=== PATIENT | female | born 1945 | race Caucasian/White ===

== ENCOUNTER → 2018-11-17 08:06 | Outpatient (CLI) | payer MEDICARE, OTHER, SELFPAY ==
--- NOTE | 2018-11-17 | DI.MG.S_ITS ---
BILATERAL DIGITAL SCREENING MAMMOGRAM 3D/2D WITH CAD: 11/17/2018 CLINICAL: Routine screening. Comparison is made to exams dated: 06/16/2017 mammogram, 08/13/2014 mammogram, and 08/12/2013 mammogram - [facility]. The tissue of both breasts is extremely dense, which lowers the sensitivity of mammography. Current study was also evaluated with a Computer Aided Detection (CAD) system. There are benign calcifications in both breasts. No significant masses, calcifications, or other findings are seen in either breast. There has been no significant interval change. IMPRESSION: There is no mammographic evidence of malignancy. A 1 year screening mammogram is recommended. This exam was interpreted at Station ID: [id number]. NOTE: For mammograms, a report in lay terms will be sent to the patient. Approximately 15% of breast malignancies will not be visualized mammographically. In the management of a palpable breast mass, a negative mammogram must not discourage biopsy of a clinically suspicious lesion. Electronically Signed By: Bulmaro velez/juan c:11/19/2018 07:32:27 letter sent: Normal Exam ACR BI-RADS Category 2: Benign Finding(s) 3342F
== END ==
PROVIDERS: PCP Internal Medicine; Visit Provider Internal Medicine
DX: Z12.31 Encounter for screening mammogram for malignant neoplasm of breast (principal)
CPT/HCPCS: 77063; 77067

== ENCOUNTER → 2018-12-06 14:17 | Outpatient (CLI) | payer MEDICARE, OTHER, SELFPAY | PROVIDERS: PCP Internal Medicine; Visit Provider Internal Medicine | DX: M85.852 Other specified disorders of bone density and structure, left thigh (principal); Z78.0 Asymptomatic menopausal state; Z82.62 Family history of osteoporosis | CPT/HCPCS: 77080 ==

== ENCOUNTER → 2018-12-21 16:07 | Outpatient (CLI) | payer MEDICARE, OTHER, SELFPAY ==
--- NOTE | 2018-12-21 16:10 | DI.US.S_ITS ---
PROCEDURE: US SOFT TISSUE HEAD AND NECK INDICATIONS: SWOLLEN LYMPH NODE IN NECK X 6 MONTHS TECHNIQUE: Real-time scanning was performed of the neck region of interest, with image documentation. COMPARISON: None. FINDINGS: There is a 2.0 x 0.8 x 1.0 cm lymph node palpated along the left aspect of the anterior neck. This demonstrates a normal fatty hilum and thin cortex. IMPRESSION: Normal appearing left cervical lymph node which likely corresponds of palpated. Dictated by: Elba Arellano M.D. on 12/21/2018 at 16:54 Approved by: Elba Arellano M.D. on 12/21/2018 at 16:55
== END ==
PROVIDERS: PCP Nurse Practitioner; Visit Provider Nurse Practitioner
DX: R59.0 Localized enlarged lymph nodes (principal)
CPT/HCPCS: 76536

== ENCOUNTER → 2019-07-19 15:46 | Outpatient (CLI) | payer MEDICARE, OTHER, SELFPAY ==
[2019-07-19 16:37] LABS: Hemoglobin A1C% w Est Avg Glu 5.4 % (4.0-6.0)
[2019-07-19 17:30] LABS: TSH w/ Reflex to FT4 2.69 uIU/mL (0.47-4.68)
[2019-07-19 18:05] LABS: Folate 14.6 ng/mL (2.76-20.0); Vitamin B12 471 pg/mL (239-931)
[2019-07-23 20:45] LABS: Albumin 4.1 g/dL (3.8-4.8); Alpha 1 Globulin 0.3 g/dL (0.2-0.3); Alpha 2 Globulin 0.7 g/dL (0.5-0.9); Beta 1 Globulin 0.4 g/dL (0.4-0.6); Protein, Total 6.8 g/dL (6.1-8.1)
[2019-07-24 21:06] LABS: Methylmalonic Acid 252 nmol/L (87-318)
== END ==
PROVIDERS: PCP Nurse Practitioner; Visit Provider Psychiatry & Neurology Neurology
DX: R20.0 Anesthesia of skin (principal); R20.2 Paresthesia of skin
CPT/HCPCS: 36415; 82607; 82746; 82784; 83036; 83921; 84155; 84165; 84443; 86334

== ENCOUNTER → 2020-05-05 15:52 | Outpatient (CLI) | payer MEDICARE, OTHER, SELFPAY ==
--- NOTE | 2020-05-05 15:56 | DI.RAD.S_ITS ---
PROCEDURE: XR HIP W PEL IF DONE RT 2V INDICATIONS: r hip pain TECHNIQUE: AP pelvis with lateral view(s) of the right hip(s). COMPARISON: None. FINDINGS: Bones: No fractures or dislocations. Pelvic ring appears intact. No suspicious bony lesions. Moderate bilateral hip osteoarthritis. Soft tissues: The visualized bowel gas pattern is normal. No suspicious soft tissue calcifications. IMPRESSION: No fracture. No acute osseous lesion. If symptoms and/or clinical suspicion for pathology persists, further assessment with repeat radiographs (7-10 days) or advanced imaging (e.g. CT, MRI or bone scan) may be helpful. Dictated by: Leti Ariza MD, PhD on 05/05/2020 at 16:36 Approved by: Leti Ariza MD, PhD on 05/05/2020 at 16:36
== END ==
PROVIDERS: PCP Nurse Practitioner; Referring Provider Physician Assistant; Visit Provider Physician Assistant
DX: M25.551 Pain in right hip (principal); M16.0 Bilateral primary osteoarthritis of hip
CPT/HCPCS: 73502

== ENCOUNTER → 2020-08-13 08:49 | Outpatient (CLI) | payer MEDICARE, OTHER, SELFPAY ==
[2020-08-13 10:04] LABS: Add Manual Diff / Slide Review NO; Basophils Absolute Auto 0 /uL (0-100); Basophils Percent Auto 0.4 % (0-2); Eosinophils Absolute Auto 200 /uL (0-450); Eosinophils Percent Auto 3.2 % (2-4); Hemoglobin 13.5 g/dL (12.0-16.0); Lymphocytes Absolute Auto 1800 /uL (1100-4500); Lymphocytes Percent Auto 35.2 % (25-40); Mean Corpuscular HGB Conc 32.9 % (30-36); Mean Corpuscular Hemoglobin 28.1 PG (26-34); Mean Corpuscular Volume 85.6 fL (80-100); Monocytes Absolute Auto 400 /uL (0-900); Neutrophils Absolute Auto 2800 /uL (1500-7000); Neutrophils Percent Auto 54.2 % (50-75); Platelet Count 218 X10^3/uL (150-400); Red Blood Cell Count 4.79 X10^6/uL (4.0-5.2); Red Cell Distribution Width 13.1 % (11.6-14.8); White Blood Cell Count 5.1 X10^3/uL (4.5-11.0)
[2020-08-13 10:27] LABS: Cholesterol 200 mg/dL (140-199); HDL Cholesterol 65 mg/dL (40-60); LDL Cholesterol Calculated 104 mg/dL (<100); Triglycerides 155 mg/dL (35-150)
== END ==
PROVIDERS: PCP Nurse Practitioner; Referring Provider Nurse Practitioner; Visit Provider Nurse Practitioner
DX: E78.2 Mixed hyperlipidemia; E78.5 Hyperlipidemia, unspecified
CPT/HCPCS: 36415; 80061; 85025

== ENCOUNTER → 2020-08-20 07:43 | Outpatient (CLI) | payer MEDICARE, OTHER, SELFPAY ==
--- NOTE | 2020-08-20 07:44 | DI.US.S_ITS ---
PROCEDURE: US ABDOMEN COMPLETE INDICATIONS: RIGHT ABDOMINAL PAIN FOR TWO WEEKS TECHNIQUE: Real-time scanning was performed of the abdominal and retroperitoneal organs, with image documentation. COMPARISON: None. FINDINGS: Liver: Liver is normal in size and homogeneous in echotexture. Gallbladder: No gallstones. No gallbladder wall thickening, pericholecystic fluid or sonographic Gates's sign. Biliary ducts: Intrahepatic bile ducts are non-dilated. Extrahepatic bile duct caliber measures 3.0 mm. Normal is 6-7 mm or less in diameter, or 10 mm or less post-cholecystectomy. Pancreas: Visualized portions of the pancreas are sonographically normal. Spleen: Spleen is normal in size and homogeneous in echotexture. Kidneys: Kidneys are normal in size and echotexture. Right kidney measures 10.6 cm long; left kidney measures 9.8 cm long. Mild left renal pelviectasis. No nephrolithiasis. No solid masses. Aorta: Visualized aorta is normal in caliber at less than 3 cm. Iliacs: Proximal common iliac arteries are normal in caliber at less than 2.5 cm. Mild plaquing of abdominal aorta. IVC: Intrahepatic inferior vena cava is patent. Miscellaneous: No free abdominal fluid. IMPRESSION: 1. A cause for right upper quadrant abdominal pain is not identified. 2. Mild left renal pelviectasis. Dictated by: Brandon Restrepo M.D. on 08/20/2020 at 9:41 Approved by: Brandon Restrepo M.D. on 08/20/2020 at 9:43
== END ==
PROVIDERS: PCP Nurse Practitioner; Referring Provider Nurse Practitioner; Visit Provider Nurse Practitioner
DX: R10.11 Right upper quadrant pain (principal); M25.511 Pain in right shoulder
CPT/HCPCS: 76700

== ENCOUNTER → 2020-12-23 13:01 | Outpatient (CLI) | payer MEDICARE, OTHER, SELFPAY ==
--- NOTE | 2020-12-23 13:02 | DI.MG.S_ITS ---
BILATERAL DIGITAL SCREENING MAMMOGRAM 3D/2D WITH CAD: 12/23/2020 CLINICAL: Routine screening. Comparison is made to exams dated: 11/17/2018 mammogram, 06/16/2017 mammogram, and 08/13/2014 mammogram - [facility]. The tissue of both breasts is extremely dense, which lowers the sensitivity of mammography. Current study was also evaluated with a Computer Aided Detection (CAD) system. There are benign calcifications in both breasts. No significant masses, calcifications, or other findings are seen in either breast. There has been no significant interval change. IMPRESSION: BENIGN There is no mammographic evidence of malignancy. A 1 year screening mammogram is recommended. This exam was interpreted at Station ID: [id number]. NOTE: For mammograms, a report in lay terms will be sent to the patient. Approximately 15% of breast malignancies will not be visualized mammographically. In the management of a palpable breast mass, a negative mammogram must not discourage biopsy of a clinically suspicious lesion. Electronically Signed By: Feroz Ocampo acr/penrad:12/23/2020 16:56:46 letter sent: Normal Exam ACR BI-RADS Category 2: Benign Finding(s) 3342F
== END ==
PROVIDERS: PCP Nurse Practitioner; Referring Provider Nurse Practitioner; Visit Provider Nurse Practitioner
DX: Z12.31 Encounter for screening mammogram for malignant neoplasm of breast (principal)
CPT/HCPCS: 77063; 77067

== ENCOUNTER → 2022-06-05 14:03 | Outpatient (CLI) | payer MEDICARE, OTHER, SELFPAY ==
[2022-06-05 14:37] LABS: COVID19 -Nasal RAPID Negative (Negative)
== END ==
PROVIDERS: PCP Nurse Practitioner; Visit Provider Nurse Practitioner Family
DX: Z20.822 Contact with and (suspected) exposure to COVID-19 (principal)
CPT/HCPCS: 87635

== ENCOUNTER → 2024-04-06 13:38 | Outpatient (CLI) | payer MEDICARE, OTHER, SELFPAY | PROVIDERS: PCP Nurse Practitioner; Referring Provider Physician Assistant Surgical; Visit Provider Physician Assistant Surgical | DX: R30.0 Dysuria (principal) | CPT/HCPCS: 87077; 87086; 87186 ==

== ENCOUNTER 2024-06-27 08:08 | Emergency (ER) | payer MEDICARE, OTHER, SELFPAY ==
--- NOTE | 2024-06-27 08:13 | ED.GENADULT ---
HPI - General Adult General Chief complaint: Nasal Problem Stated complaint: nose bleed t-1 Time Seen by Provider: 06/27/24 08:11 Source: patient Mode of arrival: Ambulatory Limitations: no limitations History of Present Illness HPI narrative: Patient is a 79-year-old female. Here for a nosebleed. Not on anticoagulation. No trauma. States she woke up this morning and noticed that there was blood on her bed. She stated that she tried to put a tissue in her right nostril that seemed to work for a short period of time but then started to bleed again. No problems breathing although she does feel like there is phlegm in the back of her throat. Related Data Home Medications Medication Instructions Recorded Confirmed diltiazem HCl 180 mg 180 mg PO DAILY 04/09/24 04/09/24 capsule,extended release 24 hr lisinopril 5 mg tablet 5 mg PO DAILY 04/09/24 04/09/24 memantine 5 mg tablet mg PO DAILY 04/09/24 04/09/24 oxybutynin chloride 5 mg tablet 5 mg PO DAILY 04/09/24 04/09/24 pravastatin 20 mg tablet 20 mg PO DAILY 04/09/24 04/09/24 pregabalin 25 mg capsule 25 mg PO ONCE PM 04/09/24 04/09/24 Allergies Allergy/AdvReac Type Severity Reaction Status Date / Time No Known Drug Allergies Allergy Verified 04/06/24 13:36 Review of Systems ENT Ears, Nose, Mouth, and Throat: Reports system reviewed and no additional complaints, except as documented Hematologic/Lymphatic On Anticoagulants: No Patient History Medical History Urinary urgency Urinary frequency Medicare annual wellness visit, subsequent Hearing loss Osteoarthritis Osteoporosis Osteopenia Measles Herpes Recurrent sinusitis Cataracts, bilateral (~2013) Skin cancer (~2004) Surgical History Anesthesia History of bilateral salpingo-oophorectomy (BSO) (~1969) Status post breast biopsy Status post delivery Status post discectomy (~1989) Family History Brother Hypertension Hyperlipidemia Mother Osteoporosis History of vertebral compression fracture History of heart disease Hypertension Hyperlipidemia Father History of heart disease Hyperlipidemia Hypertension Grandfather Cancer Hypertension Grandmother History of heart disease Hypertension Grandmother History of heart disease Hypertension Stroke Social History Smoking Status: Never smoker Smoking Status: Never smoker Exam Initial Vital Signs Initial Vital Signs: Vital Signs Temperature 97.2 F L 06/27/24 08:16 Pulse Rate 78 06/27/24 08:16 Respiratory Rate 20 06/27/24 08:16 Blood Pressure 194/85 H 06/27/24 08:16 Pulse Oximetry 100 06/27/24 08:16 Oxygen Delivery Method Room Air 06/27/24 08:16 HENAR Nose: external nose normal, nares normal, septum normal and No epistaxis Mouth: oral mucosae normal and moist mucous membranes Throat: posterior oropharynx abnormal Resp Effort & Inspection: normal respiratory effort Cardio Rate: regular rate Course Vital Signs Vital signs: Vital Signs - 8 hr 06/27/24 08:16 06/27/24 09:01 Temperature 97.2 F L Pulse Rate 78 68 Respiratory Rate 20 18 Blood Pressure 194/85 H 143/67 H Pulse Oximetry 100 100 Oxygen Delivery Method Room Air Room Air Medical Decision Making MDM Narrative Medical decision making narrative: Patient had a slight bit of oozing from the right nares. No septal hematoma. No trauma noted. Nasal clamp was placed upon arrival. This was kept in place for a period of time and then removed. After a period of observation there was no rebleeding. Will discharge patient with return precautions. Patient expressed understanding and agreement with the plan. Discharge Plan Departure Patient Disposition: Home Clinical Impression: Epistaxis Instructions: Nosebleeds (Alternative Therapy), DI for Nosebleed Activity Restrictions/Additional Instructions: Continue to take all of your medications as directed. I would recommend as best as possible that you avoid rubbing your nose or blowing your nose for the next 24 hours. You can try some Vaseline in the outside portion of the nose if needed like we discussed. Use the nasal clamp if needed. Return to the emergency department for new symptoms. Prescriptions: No Action memantine 5 mg tablet PO DAILY oxybutynin chloride 5 mg tablet 5 mg PO DAILY pravastatin 20 mg tablet 20 mg PO DAILY diltiazem HCl 180 mg capsule,extended release 24hr 180 mg PO DAILY lisinopril 5 mg tablet 5 mg PO DAILY pregabalin 25 mg capsule 25 mg PO ONCE PM Referrals: Stephanie Bedoya ARNP [Primary Care Provider] - Stand Alone Forms: Patient Portal/API/Survey
[2024-06-27 08:16] VITALS: BP 194/85; PULSE 78; RESP 20; TEMP 36.2; O2SAT 100; BMI 14.9
[2024-06-27 09:01] VITALS: BP 143/67; PULSE 68; RESP 18; O2SAT 100
== END 2024-06-27 09:17 | disposition home or self-care (01) ==
LOC: ED 08:17
PROVIDERS: Emergency Provider Emergency Medicine; PCP Nurse Practitioner
DX: R04.0 Epistaxis (principal)
CPT/HCPCS: 99281